=== PATIENT | female | born 1965 | race Caucasian/White ===

== ENCOUNTER → 2024-04-27 08:48 | Outpatient (CLI) | payer OTHER, SELFPAY ==
--- NOTE | 2024-04-27 08:52 | DI.US.S_ITS ---
PROCEDURE: US THYROID INDICATIONS: PALPABLE LUMP LEFT SUPERIOR NECK NEAR JAWLINE TECHNIQUE: Real-time scanning was performed of the left neck, with image documentation. COMPARISON: None. FINDINGS: No mass, fluid collection or lymphadenopathy seen within the left neck in the region of interest. Incidental finding of hypoechoic left thyroid nodule. IMPRESSION: 1. No sonographic abnormality seen involving the left neck in the region of interest. 2. Incidental finding of left thyroid nodule. When clinically feasible, recommend formal thyroid ultrasound for further characterization. Dictated by: [facility] Interpreted: Tiny Mathew MD on 04/28/2024 at 12:21 Approved by: Tiny Mathew MD, PhD on 05/03/2024 at 11:14
== END ==
PROVIDERS: Referring Provider Nurse Practitioner Family; Visit Provider Nurse Practitioner Family
DX: E04.1 Nontoxic single thyroid nodule (principal); R59.9 Enlarged lymph nodes, unspecified
CPT/HCPCS: 76536